=== PATIENT | male | born 1965 | race Caucasian/White ===

== ENCOUNTER 2025-07-12 20:37 | Emergency (ER) | payer BC ==
[2025-07-12] MEDS: Diphtheria,Pertussis(Acell),Tetanus Vaccine 0.5 ML Syringe IM ONE (21:29)
[2025-07-12] MEDS: Erythromycin Base 0.5% Ophth Oint 3.5 GM Tube EYERT ONE (21:31)
[2025-07-12 21:41] VITALS: BP 154/79; PULSE 76
== END 2025-07-12 21:40 | disposition home or self-care (01) ==
LOC: FB.ED 20:37 → SUPCPDRO 20:37 → FB.ED 21:40
DX: T15.01XA Foreign body in cornea, right eye, initial encounter (principal); H54.7 Unspecified visual loss; I10 Essential (primary) hypertension; X58.XXXA Exposure to other specified factors, initial encounter
CPT/HCPCS: 65205; 90471; 90715; 99283; A9270